=== PATIENT | male | born 1985 | race Caucasian/White ===

== ENCOUNTER 2017-12-09 11:57 | Emergency (ER) | payer MEDICAID ==
[2017-12-09 13:25] LABS: APPEARANCE CLEAR (CLEAR); BILIRUBIN NEGATIVE (NEGATIVE); COLOR YELLOW (YELLOW); GLUCOSE NEGATIVE (NEGATIVE); KETONE NEGATIVE (NEGATIVE); NITRITE NEGATIVE (NEGATIVE); PROTEIN NEGATIVE (NEGATIVE); SPECIFIC GRAVITY 1.015 (1.005-1.020); UROBILINOGEN NORMAL (NORMAL)
== END 2017-12-09 14:25 | disposition home or self-care (01) ==
LOC: D.ER 11:57
PROVIDERS: Family Medicine
DX: M54.5 Low back pain (principal)

== ENCOUNTER 2018-02-08 12:55 | Emergency (ER) | payer MEDICAID | END 2018-02-08 14:18 | disposition home or self-care (01) | LOC: D.ER 12:55 | DX: J06.9 Acute upper respiratory infection, unspecified (principal); R11.2 Nausea with vomiting, unspecified; J02.9 Acute pharyngitis, unspecified; F17.200 Nicotine dependence, unspecified, uncomplicated ==

== ENCOUNTER 2018-07-07 17:17 | Emergency (ER) | payer SELFPAY ==
[~2018-07-07] VITALS: Ht 188 cm; Wt 75.9 kg
[2018-07-07 17:20] VITALS: Ht 188 cm; Wt 75.9 kg
[2018-07-07] MEDS ORDERED: EC-NAPROSYN500 MG PO (19:18)
[2018-07-07] MEDS ORDERED: CYCLOBENZAPRINE10 MG PO (19:18)
[2018-07-07 19:37] VITALS: BP 142/93
== END 2018-07-07 19:38 | disposition home or self-care (01) ==
LOC: D.ER 17:17
DX: S22.32XA Fracture of one rib, left side, initial encounter for closed fracture (principal); W18.31XA Fall on same level due to stepping on an object, initial encounter; Y93.89 Activity, other specified; Y92.019 Unspecified place in single-family (private) house as the place of occurrence of the external cause; F17.200 Nicotine dependence, unspecified, uncomplicated

== ENCOUNTER 2021-01-23 09:54 | Inpatient (IN) | payer BC ==
[~2021-01-23] VITALS: Ht 188 cm; Wt 72.6 kg
[~2021-01-23 09:54] MED LIST: CLEOCIN HCL300 MG PO; CYCLOBENZAPRINE10 MG PO; EC-NAPROSYN500 MG PO; HYDROCODON-ACE1 EAC7 PO; NAPROSYN500 MG PO
[2021-01-23 10:18] LABS: BASOPHILS 0.3 % (0-2); EOSINOPHILS 5.3 % (0-7); HEMOGLOBIN 16.6 g/dL (13.5-17.5); IMMATURE GRANULOCYTES 0.5 % (0-5); LYMPHOCYTE ABS# 1.16 10x3/uL (1.32-3.57); LYMPHOCYTES 18.5 % (15-50); MCH 35.9 pg (26.0-34.0); MCHC 36.1 g/dL (31.0-37.0); MCV 99.4 fL (80.0-100.0); MONOCYTES 10.4 % (2-11); NEUTROPHIL ABS# 4.09 10x3/uL (1.78-5.38); PLATELET COUNT 113 10x3/uL (130-400); RBC 4.63 10x6/uL (4.20-6.10); RDW 12.8 % (11.5-14.5); WBC 6.3 10x3/uL (4.8-10.8)
[2021-01-23 10:25] LABS: CALC OSMOLALITY 278 mosm/kg (275-300); CALCIUM 10.1 mg/dL (8.5-10.1); CARBON DIOXIDE 28.8 mmol/L (21.0-32.0); CHLORIDE - SERUM 101 mmol/L (98-107); CREATININE - SERUM 0.7 mg/dL (0.6-1.3); GLUCOSE 109 mg/dL (74-106); POTASSIUM - SERUM 3.6 mmol/L (3.5-5.1); SODIUM 139 mmol/L (136-145); UREA NITROGEN 12 mg/dL (7-18); eGFR NON AFRICAN AMERICAN > 90 mL/min (90-120)
[2021-01-23 10:38] LABS: ALBUMIN 3.7 g/dL (3.4-5.0); ALKALINE PHOSPHATASE 147 U/L (30-120); ALT (SGPT) 130 U/L (10-68); BILIRUBIN - TOTAL 0.57 mg/dL (0.2-1.3); PROTEIN - SERUM 7.9 g/dL (6.4-8.2)
[2021-01-23 11:02] VITALS: BP 131/93
[2021-01-23 11:04] LABS: LIPASE 8650 U/L (73-393)
[2021-01-23 11:06] LABS: BILIRUBIN NEGATIVE (NEGATIVE); KETONE NEGATIVE (NEGATIVE); NITRITE NEGATIVE (NEGATIVE); UROBILINOGEN NORMAL mg/dL (< 2)
[2021-01-23 11:10] LABS: BACTERIA FEW HPF (NONE SEEN); SQUAMOUS EPITHELIAL NONE SEEN HPF (0-4); WHITE CELLS - URINE 0-5 HPF (0-1)
[2021-01-23 12:12] VITALS: BP 137/94
--- NOTE | 2021-01-23 13:58 | NUR ---
PT ARRIVED VIA WHEELCHAIR, AMBULATORY, AWAKE AND ALERT, ANSWERS QUESTIONS APPROP. RR EVEN NON LABORED. PT DENIES ANY NEEDS AT THIS TIME. ORIENTED TO ROOM, CALL LIGHT, SMOKING RULES, PT STATES UNDERSTANDING. CLWR.
[2021-01-23 14:04] VITALS: BP 134/93; BMI 20.5
--- NOTE | 2021-01-23 18:55 | NUR ---
PT LYING IN BED ON LEFT SIDE, APPEARS ASLEEP, BREATHING DEEPLY/EVENLY. NO ACUTE DISTRESS. WILL CONTIUE TO MONITOR
[2021-01-23 21:45] VITALS: BP 130/86
[2021-01-24 01:34] VITALS: BP 126/82
[2021-01-24 05:18] VITALS: BP 128/84
[2021-01-24 06:55] LABS: BASOPHILS 0.2 % (0-2); EOSINOPHILS 0.8 % (0-7); HEMATOCRIT 43.7 % (42.0-54.0); HEMOGLOBIN 15.3 g/dL (13.5-17.5); IMMATURE GRANULOCYTES 0.3 % (0-5); LYMPHOCYTE ABS# 0.66 10x3/uL (1.32-3.57); LYMPHOCYTES 10.3 % (15-50); MCH 35.1 pg (26.0-34.0); MCV 100.2 fL (80.0-100.0); MONOCYTES 11.2 % (2-11); NEUTROPHIL ABS# 4.95 10x3/uL (1.78-5.38); NEUTROPHILS 77.2 % (40-80); PLATELET COUNT 113 10x3/uL (130-400); RBC 4.36 10x6/uL (4.20-6.10); RDW 12.9 % (11.5-14.5); WBC 6.4 10x3/uL (4.8-10.8)
[2021-01-24 07:23] LABS: ALBUMIN 2.9 g/dL (3.4-5.0); ALKALINE PHOSPHATASE 114 U/L (30-120); BILIRUBIN - TOTAL 0.67 mg/dL (0.2-1.3); CALC OSMOLALITY 271 mosm/kg (275-300); CALCIUM 8.2 mg/dL (8.5-10.1); CARBON DIOXIDE 26.1 mmol/L (21.0-32.0); CHLORIDE - SERUM 100 mmol/L (98-107); CREATININE - SERUM 0.6 mg/dL (0.6-1.3); GLUCOSE 93 mg/dL (74-106); POTASSIUM - SERUM 3.2 mmol/L (3.5-5.1); PROTEIN - SERUM 6.9 g/dL (6.4-8.2); SODIUM 136 mmol/L (136-145); T4 THYROXIN - FREE 0.82 ng/dL (0.76-1.46); THYROID STIMULATING HORMONE 4.12 uIU/mL (0.36-3.74); UREA NITROGEN 13 mg/dL (7-18); eGFR NON AFRICAN AMERICAN > 90 mL/min (90-120)
[2021-01-24 07:25] LABS: ALT (SGPT) 83 U/L (10-68)
[2021-01-24 07:38] LABS: LIPASE 5987 U/L (73-393)
[2021-01-24 08:00] VITALS: BP 149/100
[2021-01-24 11:00] VITALS: BP 129/96
[2021-01-24 12:43] VITALS: Ht 188 cm; Wt 72.6 kg
[2021-01-24 14:37] VITALS: BP 123/86
--- NOTE | 2021-01-24 15:20 | NUR ---
PT ARRIVED BACK FROM WALKING, PT HAD EXITED THE FLOOR. WHEN PT ARRIVED BACK EDUCATION PROVIDED REGARDING NOT LEAVING THE FLOOR. PT STATES UNDERSTANDING. IV RESUMED, NO FURTHER NEEDS VOICED. CLWR.
--- NOTE | 2021-01-24 19:00 | NUR ---
pt sittingup in bed. reports abd/epigastric pain prn norco given, no acute distress. will continue to monitor
[2021-01-24 21:29] VITALS: BP 122/88
[2021-01-25 01:44] VITALS: BP 123/86
[2021-01-25 01:46] VITALS: BP 123/86
[2021-01-25 05:35] VITALS: BP 109/73
[2021-01-25 06:00] LABS: BASOPHILS 0.2 % (0-2); HEMATOCRIT 41.2 % (42.0-54.0); HEMOGLOBIN 14.4 g/dL (13.5-17.5); IMMATURE GRANULOCYTES 0.3 % (0-5); LYMPHOCYTES 14.9 % (15-50); MCH 35.4 pg (26.0-34.0); MCV 101.2 fL (80.0-100.0); MEAN PLATELET VOLUME 10.2 fL (7.4-10.4); MONOCYTES 13.4 % (2-11); NEUTROPHIL ABS# 4.18 10x3/uL (1.78-5.38); NEUTROPHILS 69.2 % (40-80); PLATELET COUNT 97 10x3/uL (130-400); RBC 4.07 10x6/uL (4.20-6.10); RDW 12.6 % (11.5-14.5)
[2021-01-25 06:30] LABS: ALBUMIN 2.5 g/dL (3.4-5.0); ALKALINE PHOSPHATASE 99 U/L (30-120); BILIRUBIN - TOTAL 0.88 mg/dL (0.2-1.3); CALCIUM 7.9 mg/dL (8.5-10.1); CARBON DIOXIDE 26.9 mmol/L (21.0-32.0); CHLORIDE - SERUM 100 mmol/L (98-107); CREATININE - SERUM 0.6 mg/dL (0.6-1.3); POTASSIUM - SERUM 3.5 mmol/L (3.5-5.1); PROTEIN - SERUM 6.4 g/dL (6.4-8.2); SODIUM 135 mmol/L (136-145); UREA NITROGEN 11 mg/dL (7-18); eGFR NON AFRICAN AMERICAN > 90 mL/min (90-120)
[2021-01-25 06:32] LABS: ALT (SGPT) 55 U/L (10-68); CALC OSMOLALITY 266 mosm/kg (275-300)
[2021-01-25 06:33] LABS: GLUCOSE 67 mg/dL (74-106)
[2021-01-25 06:50] LABS: LIPASE 2428 U/L (73-393); PLATELET ESTIMATE DECREASED
[2021-01-25 08:04] VITALS: BP 117/93
--- NOTE | 2021-01-25 09:31 | NUR ---
PATIENT AAOX4, RESP EVEN AND NON LABORED, NO S/S OF DISTRESS, MEDICATIONS ADMINISTERED WITH NO COMPLICATIONS, PATIENT STATES HE IS READY TO GO HOME AND FEELS MUCH BETTER, NO FURTHER NEEDS AT THIS TIME, JURGEN COLIN
--- NOTE | 2021-01-25 13:11 | NUR ---
PATIENT LEFT AMA, PATIENT ADVISED OF HEALTH CARE CONCERNS AND TO PLEASE FOLLOW UP WITH PCP OR COME TO ER IF ANY COMPLICATIONS ARISE.
== END 2021-01-25 13:14 | disposition left against medical advice (07) | DRG 440 ==
LOC: D.ER 09:54 → D.M2 12:42
PROVIDERS: Emergency Medicine; ADMIT Family Medicine; ATTEND Family Medicine
DX: K85.20 Alcohol induced acute pancreatitis without necrosis or infection (principal); F10.20 Alcohol dependence, uncomplicated; E03.9 Hypothyroidism, unspecified; F17.200 Nicotine dependence, unspecified, uncomplicated; Z21 Asymptomatic human immunodeficiency virus [HIV] infection status

== ENCOUNTER 2021-01-27 04:35 | Inpatient (IN) | payer BC ==
[~2021-01-27] VITALS: Ht 188 cm; Wt 67.1 kg
[2021-01-27 04:38] VITALS: BP 134/88
--- NOTE | 2021-01-27 04:55 | NUR ---
TEARFUL SAYING THIS IS THE WORST STOMACH PAIN I HAVE HAD. DENIES N/V/D
[2021-01-27 05:19] LABS: BASOPHILS 0.2 % (0-2); EOSINOPHILS 5.2 % (0-7); HEMATOCRIT 36.7 % (42.0-54.0); HEMOGLOBIN 13.1 g/dL (13.5-17.5); IMMATURE GRANULOCYTES 0.2 % (0-5); LYMPHOCYTE ABS# 0.78 10x3/uL (1.32-3.57); LYMPHOCYTES 19.3 % (15-50); MCH 35.3 pg (26.0-34.0); MCHC 35.7 g/dL (31.0-37.0); MCV 98.9 fL (80.0-100.0); MEAN PLATELET VOLUME 9.3 fL (7.4-10.4); MONOCYTES 18.3 % (2-11); NEUTROPHIL ABS# 2.29 10x3/uL (1.78-5.38); NEUTROPHILS 56.8 % (40-80); PLATELET COUNT 139 10x3/uL (130-400); RBC 3.71 10x6/uL (4.20-6.10); RDW 12.4 % (11.5-14.5)
[2021-01-27 05:32] LABS: CALC OSMOLALITY 277 mosm/kg (275-300); CALCIUM 7.7 mg/dL (8.5-10.1); CARBON DIOXIDE 24.8 mmol/L (21.0-32.0); CHLORIDE - SERUM 105 mmol/L (98-107); CREATININE - SERUM 0.6 mg/dL (0.6-1.3); GLUCOSE 82 mg/dL (74-106); SODIUM 141 mmol/L (136-145); UREA NITROGEN 7 mg/dL (7-18); eGFR NON AFRICAN AMERICAN > 90 mL/min (90-120)
[2021-01-27 05:46] LABS: ALBUMIN 2.7 g/dL (3.4-5.0); ALKALINE PHOSPHATASE 120 U/L (30-120); ALT (SGPT) 74 U/L (10-68); BILIRUBIN - TOTAL 0.39 mg/dL (0.2-1.3); PROTEIN - SERUM 6.1 g/dL (6.4-8.2)
[2021-01-27 05:49] LABS: LIPASE 2922 U/L (73-393)
--- NOTE | 2021-01-27 05:49 | NUR ---
TO ORDERED IMAGING AT THIS TIME VIA STRETCHER
[2021-01-27 07:55] VITALS: BP 116/79
--- NOTE | 2021-01-27 09:08 | NUR ---
ADMITTED TO ROOM FROM ER, IV INFUSING PER DR RANJANA HERE TO SEE PT
[2021-01-27 09:11] VITALS: BMI 20.5
[2021-01-27 13:51] LABS: BILIRUBIN NEGATIVE (NEGATIVE); KETONE SMALL mg/dL (NEGATIVE); NITRITE NEGATIVE (NEGATIVE); UROBILINOGEN NORMAL mg/dL (< 2)
[2021-01-27 13:52] LABS: BACTERIA RARE HPF (NONE SEEN); UDS - AMPHET NEGATIVE QUAL (NEGATIVE); UDS - BARB NEGATIVE QUAL (NEGATIVE); UDS - BENZO NEGATIVE QUAL (NEGATIVE); UDS - COCAINE NEGATIVE QUAL (NEGATIVE); UDS - OPIATE POSITIVE QUAL (NEGATIVE); UDS - PCP NEGATIVE QUAL (NEGATIVE); UDS - THC POSITIVE QUAL (NEGATIVE); WHITE CELLS - URINE 0-5 HPF (0-1)
[2021-01-27 16:49] VITALS: BP 125/78
--- NOTE | 2021-01-27 23:23 | NUR ---
WACHING TV QUIETLY WITH NO DISTRESS NOTED. RESP UNALBORED.IV TO LAC INTACT WIHTOUT REDNESS OR EDEMA NOTED. CL IN REAC
--- NOTE | 2021-01-28 00:13 | NUR ---
I have reviewed this patient and I concur with the Shift Assessment completed by the Licensed Practical Nurse today this shift.
[2021-01-28 00:40] VITALS: BP 129/93
[2021-01-28 07:55] LABS: BASOPHILS 0.3 % (0-2); EOSINOPHILS 4.5 % (0-7); HEMATOCRIT 37.7 % (42.0-54.0); HEMOGLOBIN 13.3 g/dL (13.5-17.5); IMMATURE GRANULOCYTES 0.3 % (0-5); LYMPHOCYTES 24.2 % (15-50); MCH 34.9 pg (26.0-34.0); MCHC 35.3 g/dL (31.0-37.0); MEAN PLATELET VOLUME 9.6 fL (7.4-10.4); MONOCYTES 18.2 % (2-11); NEUTROPHIL ABS# 1.73 10x3/uL (1.78-5.38); NEUTROPHILS 52.5 % (40-80); PLATELET COUNT 164 10x3/uL (130-400); RBC 3.81 10x6/uL (4.20-6.10); RDW 12.5 % (11.5-14.5); WBC 3.3 10x3/uL (4.8-10.8)
[2021-01-28 08:14] VITALS: BP 134/81
[2021-01-28 08:40] LABS: ALBUMIN 2.7 g/dL (3.4-5.0); ALKALINE PHOSPHATASE 118 U/L (30-120); ALT (SGPT) 73 U/L (10-68); BILIRUBIN - TOTAL 0.59 mg/dL (0.2-1.3); CALC OSMOLALITY 274 mosm/kg (275-300); CALCIUM 8.1 mg/dL (8.5-10.1); CARBON DIOXIDE 27.2 mmol/L (21.0-32.0); CHLORIDE - SERUM 103 mmol/L (98-107); CREATININE - SERUM 0.6 mg/dL (0.6-1.3); MAGNESIUM - SERUM 1.9 mg/dL (1.8-2.4); PHOSPHOROUS 2.7 mg/dL (2.5-4.9); POTASSIUM - SERUM 3.2 mmol/L (3.5-5.1); PROTEIN - SERUM 6.1 g/dL (6.4-8.2); SODIUM 140 mmol/L (136-145); UREA NITROGEN 8 mg/dL (7-18); eGFR NON AFRICAN AMERICAN > 90 mL/min (90-120)
[2021-01-28 08:45] LABS: LIPASE 2924 U/L (73-393)
[2021-01-28 08:47] LABS: GLUCOSE 70 mg/dL (74-106)
--- NOTE | 2021-01-28 09:56 | NUR ---
RESTING IN BED, NO DISTRESS NOTED, IV INFUSING PER LAC, NPO, CONT TO MONITOR LABS
[2021-01-28 13:42] VITALS: BP 139/93
[2021-01-28 16:35] VITALS: BP 150/97
[2021-01-29 06:53] LABS: BASOPHILS 0.3 % (0-2); EOSINOPHILS 3.1 % (0-7); HEMATOCRIT 36.9 % (42.0-54.0); HEMOGLOBIN 12.9 g/dL (13.5-17.5); IMMATURE GRANULOCYTES 0.3 % (0-5); LYMPHOCYTE ABS# 0.77 10x3/uL (1.32-3.57); LYMPHOCYTES 24.1 % (15-50); MCH 34.8 pg (26.0-34.0); MCV 99.5 fL (80.0-100.0); MEAN PLATELET VOLUME 9.7 fL (7.4-10.4); MONOCYTES 14.7 % (2-11); NEUTROPHIL ABS# 1.84 10x3/uL (1.78-5.38); NEUTROPHILS 57.5 % (40-80); PLATELET COUNT 195 10x3/uL (130-400); RBC 3.71 10x6/uL (4.20-6.10); RDW 12.5 % (11.5-14.5); WBC 3.2 10x3/uL (4.8-10.8)
[2021-01-29 07:01] LABS: ALBUMIN 2.6 g/dL (3.4-5.0); ALKALINE PHOSPHATASE 124 U/L (30-120); BILIRUBIN - TOTAL 0.65 mg/dL (0.2-1.3); CALCIUM 8.3 mg/dL (8.5-10.1); CARBON DIOXIDE 28.8 mmol/L (21.0-32.0); CHLORIDE - SERUM 104 mmol/L (98-107); GLUCOSE 88 mg/dL (74-106); MAGNESIUM - SERUM 1.8 mg/dL (1.8-2.4); PHOSPHOROUS 3.2 mg/dL (2.5-4.9); POTASSIUM - SERUM 3.3 mmol/L (3.5-5.1); PROTEIN - SERUM 6.5 g/dL (6.4-8.2); SODIUM 140 mmol/L (136-145)
[2021-01-29 07:41] LABS: ALT (SGPT) 96 U/L (10-68); CALC OSMOLALITY 275 mosm/kg (275-300); CREATININE - SERUM 0.6 mg/dL (0.6-1.3); LIPASE 3992 U/L (73-393); UREA NITROGEN 6 mg/dL (7-18); eGFR NON AFRICAN AMERICAN > 90 mL/min (90-120)
--- NOTE | 2021-01-29 08:08 | NUR ---
PT LAYING IN BED RESTING, AOX4, NO SIGNS OF DISTRESS, NO NEEDS AT THIS TIME
--- NOTE | 2021-01-29 09:10 | NUR ---
DATA PROCESSING SYSTEMS PROJECT PLANNER AND CONCRETE PUMP OPERATOR HELPER NOTIFIED OF PT NEED TO BE ON TELE PER DR TINAJERO
[2021-01-29 10:02] VITALS: BP 124/85
[2021-01-29 10:37] VITALS: Ht 188 cm; Wt 67.1 kg
[2021-01-29 14:07] VITALS: BP 127/80
[2021-01-29 18:59] VITALS: BP 126/95
[2021-01-29 20:00] VITALS: BP 129/95
[2021-01-30] VITALS: BP 136/90
--- NOTE | 2021-01-30 02:16 | NUR ---
I have reviewed this patient and I concur with the Shift Assessment completed by the Licensed Practical Nurse today this shift.
[2021-01-30 04:00] VITALS: BP 122/83
[2021-01-30 06:38] LABS: BASOPHILS 0.4 % (0-2); EOSINOPHILS 3.3 % (0-7); HEMATOCRIT 34.5 % (42.0-54.0); HEMOGLOBIN 12.1 g/dL (13.5-17.5); IMMATURE GRANULOCYTES 0.4 % (0-5); LYMPHOCYTE ABS# 0.59 10x3/uL (1.32-3.57); LYMPHOCYTES 24.3 % (15-50); MCH 34.7 pg (26.0-34.0); MCHC 35.1 g/dL (31.0-37.0); MCV 98.9 fL (80.0-100.0); MEAN PLATELET VOLUME 9.6 fL (7.4-10.4); MONOCYTES 17.7 % (2-11); NEUTROPHIL ABS# 1.31 10x3/uL (1.78-5.38); NEUTROPHILS 53.9 % (40-80); PLATELET COUNT 189 10x3/uL (130-400); RBC 3.49 10x6/uL (4.20-6.10); RDW 12.5 % (11.5-14.5); WBC 2.4 10x3/uL (4.8-10.8)
[2021-01-30 06:47] LABS: INR 1.13 (0.85-1.17); PROTIME 13.4 SECONDS (11.6-15.0)
[2021-01-30 06:54] LABS: ALBUMIN 2.4 g/dL (3.4-5.0); ALKALINE PHOSPHATASE 112 U/L (30-120); ALT (SGPT) 89 U/L (10-68); BILIRUBIN - TOTAL 0.42 mg/dL (0.2-1.3); CALCIUM 8.1 mg/dL (8.5-10.1); CARBON DIOXIDE 28.9 mmol/L (21.0-32.0); CHLORIDE - SERUM 106 mmol/L (98-107); CREATININE - SERUM 0.6 mg/dL (0.6-1.3); GLUCOSE 110 mg/dL (74-106); PHOSPHOROUS 3.1 mg/dL (2.5-4.9); POTASSIUM - SERUM 3.1 mmol/L (3.5-5.1); SODIUM 139 mmol/L (136-145); eGFR NON AFRICAN AMERICAN > 90 mL/min (90-120)
[2021-01-30 07:20] LABS: CALC OSMOLALITY 275 mosm/kg (275-300); LIPASE 4007 U/L (73-393); MAGNESIUM - SERUM 2.3 mg/dL (1.8-2.4); UREA NITROGEN 3 mg/dL (7-18)
--- NOTE | 2021-01-30 07:30 | NUR ---
REC'D IN BED DURING WALKING ROUNDS AWAKE AND ALERT. RESP EVEN AND UNLABOREDW WITH NO DISTRESS NOTED. CAN EXPRESS NEEDS AND WANTS.NO C/O NOTED OR VOICED AT THIS TIME. ASSESSMENT COMPLETED. C/L IN REACH AT BEDSIDE.
[2021-01-30 08:50] VITALS: BP 123/82
--- NOTE | 2021-01-30 11:27 | NUR ---
WAS MEDICATED WITH DILAUDID 1 MG AT THIS TIME FOR C/O PAIN RATING 10/10. C/L IN REACH AT BEDSIDE.
[2021-01-30 14:48] VITALS: BP 137/79
--- NOTE | 2021-01-30 15:31 | NUR ---
WAS MEDICATED WITH DILAUDID 1 MG AT THIS TIME FOR C/O PAIN. C/L IN REACH AT BEDSIDE.
[2021-01-30 17:51] VITALS: BP 126/92
[2021-01-30 20:00] VITALS: BP 140/94
[2021-01-31] VITALS: BP 116/81
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
[2021-01-31 07:20] LABS: INR 1.15 (0.85-1.17); PROTIME 13.6 SECONDS (11.6-15.0)
[2021-01-31 07:22] LABS: BASOPHILS 0.4 % (0-2); EOSINOPHILS 5.7 % (0-7); HEMATOCRIT 34.1 % (42.0-54.0); HEMOGLOBIN 11.8 g/dL (13.5-17.5); LYMPHOCYTE ABS# 0.82 10x3/uL (1.32-3.57); LYMPHOCYTES 29.2 % (15-50); MCH 34.5 pg (26.0-34.0); MCHC 34.6 g/dL (31.0-37.0); MCV 99.7 fL (80.0-100.0); MONOCYTES 14.2 % (2-11); NEUTROPHIL ABS# 1.42 10x3/uL (1.78-5.38); NEUTROPHILS 50.5 % (40-80); PLATELET COUNT 210 10x3/uL (130-400); RBC 3.42 10x6/uL (4.20-6.10); RDW 12.6 % (11.5-14.5); WBC 2.8 10x3/uL (4.8-10.8)
--- NOTE | 2021-01-31 07:22 | NUR ---
RECIEVED BEDSIDE REPORT. BED LOW POSITION, CALL LIGHT IN REACH. FREE FROM SIGNS OF DISTRESS. IN BED SLEEPING. AROUSES TO VOICE. DENIES NEEDS A THIS TIME. WILL CONTINUE TO MONITOR.
[2021-01-31 07:30] LABS: ALBUMIN 2.4 g/dL (3.4-5.0); ALKALINE PHOSPHATASE 110 U/L (30-120); ALT (SGPT) 88 U/L (10-68); CALC OSMOLALITY 278 mosm/kg (275-300); CALCIUM 7.9 mg/dL (8.5-10.1); CARBON DIOXIDE 26.2 mmol/L (21.0-32.0); CHLORIDE - SERUM 108 mmol/L (98-107); CREATININE - SERUM 0.5 mg/dL (0.6-1.3); GLUCOSE 77 mg/dL (74-106); MAGNESIUM - SERUM 2.3 mg/dL (1.8-2.4); PHOSPHOROUS 3.5 mg/dL (2.5-4.9); POTASSIUM - SERUM 3.6 mmol/L (3.5-5.1); PROTEIN - SERUM 5.8 g/dL (6.4-8.2); SODIUM 142 mmol/L (136-145); eGFR NON AFRICAN AMERICAN > 90 mL/min (90-120)
[2021-01-31 08:01] LABS: LIPASE 3375 U/L (73-393); UREA NITROGEN 4 mg/dL (7-18)
[2021-01-31 10:11] VITALS: BP 121/84
--- NOTE | 2021-01-31 12:24 | MORECARE ---
CASE MANAGEMENT DISCHARGE SUMMARY PATIENT: ZECHARIAH BOWDEN UNIT: [id number] ADM DATE: 01/27/21 AGE: 35 : 83 SEX: M ROOM/BED: D.2208 AUTHOR: ALICE HATHAWAY PHYSICIAN: REFERRING PHYSICIAN: CRISSY STYLES MD DATE OF SERVICE: 01/31/21 Case Management Discharge Planning Summary DCP REVIEW SUMMARY ANTICIPATED D/C DATE: EXPECTED LOS : CASE STATUS: DCP Initiated INITIAL REVIEW: 01/27/2021 INITIAL REVIEWER: Nimo Barrios FINAL DISCHARGE DISPOSITION: 01 : Home or Self Care (Routine Discharge) FINAL REVIEWER: FINAL REVIEW DATE: DCP Focus Questions & Answers QUESTION: ANSWER : PATIENT: ZECHARIAH BOWDEN ENCOUNTER: [id number] MEDICAL RECORD#: [id number] ADMISSION DATE: 01/27/2021 DISCHARGE DATE: ATTENDING MD: STEPHANI STYLES : AGE: 35 MARITAL STATUS: S DC PLAN ID: [id number] FACILITY: [facility] PRINTED ON: 01/31/21 12:24 CT All edits/amendments must be made on the electronic document DICTATION DATE: 01/31/21 122 OTHER SALES SUPPORT WORKER: DM 01/31/21 1224 RPT#: [id number] DC DATE: STATUS: ADM IN [facility] [address] [place] [address] END OF REPORT
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
[2021-01-31 14:48] VITALS: BP 123/89
[2021-01-31 17:11] VITALS: BP 132/88
--- NOTE | 2021-01-31 19:32 | NUR ---
RECEIVED BEDSIDE REPORT. PIV TO RIGHT AC, PATENT AND INFUSING, NO REDNESS OR SWELLING. TELEMERTY IN PLACE, 79 SR. PT ABLE TO AMBULATE AD [place]. EDUCATED PT ON CL AND NEEDS, VERBALIZED UNDERSTANDING. BED LOW, CL IN REACH.
[2021-01-31 20:00] VITALS: BP 117/80
[2021-02-01] VITALS: BP 128/88
[2021-02-01 06:37] LABS: HEMATOCRIT 33.9 % (42.0-54.0); HEMOGLOBIN 11.8 g/dL (13.5-17.5); LYMPHOCYTE ABS# 0.67 10x3/uL (1.32-3.57); MCH 34.9 pg (26.0-34.0); MCHC 34.8 g/dL (31.0-37.0); MCV 100.3 fL (80.0-100.0); MEAN PLATELET VOLUME 9.9 fL (7.4-10.4); NEUTROPHIL ABS# 1.26 10x3/uL (1.78-5.38); PLATELET COUNT 209 10x3/uL (130-400); RBC 3.38 10x6/uL (4.20-6.10); RDW 12.6 % (11.5-14.5); WBC 2.5 10x3/uL (4.8-10.8)
[2021-02-01 06:58] LABS: INR 1.13 (0.85-1.17); PROTIME 13.4 SECONDS (11.6-15.0)
[2021-02-01 07:08] LABS: ALBUMIN 2.6 g/dL (3.4-5.0); ALKALINE PHOSPHATASE 111 U/L (30-120); ALT (SGPT) 79 U/L (10-68); BILIRUBIN - TOTAL 0.49 mg/dL (0.2-1.3); CALC OSMOLALITY 273 mosm/kg (275-300); CALCIUM 8.7 mg/dL (8.5-10.1); CARBON DIOXIDE 25.2 mmol/L (21.0-32.0); CHLORIDE - SERUM 107 mmol/L (98-107); CHOL - HDL RATIO 5.5 ratio (2.3-4.9); CHOLESTEROL, TOTAL 133 mg/dL (0-200); GLUCOSE 78 mg/dL (74-106); HDL CHOLESTEROL 24 mg/dL (32-96); LDL CHOLESTEROL 94 mg/dL (0-100); LDL-HDL RATIO 3.9 ratio (1.5-3.5); MAGNESIUM - SERUM 2.3 mg/dL (1.8-2.4); PHOSPHOROUS 4.3 mg/dL (2.5-4.9); POTASSIUM - SERUM 3.9 mmol/L (3.5-5.1); PROTEIN - SERUM 6.2 g/dL (6.4-8.2); SODIUM 139 mmol/L (136-145); TRIGLYCERIDE 78 mg/dL (30-200); UREA NITROGEN 4 mg/dL (7-18)
[2021-02-01 07:29] LABS: CREATININE - SERUM 0.7 mg/dL (0.6-1.3); LIPASE 2626 U/L (73-393); eGFR NON AFRICAN AMERICAN > 90 mL/min (90-120)
--- NOTE | 2021-02-01 07:31 | NUR ---
RECIEVED BEDSIDE REPORT. BED LOW POSITION, CALL LIGHT IN REACH. FAMILY AT BEDSIDE. DENIES NEEDS AT THIS TIME. FREE FROM SIGNS OF DISTRESS. WILL CONTINUE TO MONITOR.
[2021-02-01 09:34] VITALS: BP 134/73
[2021-02-01] MEDS ORDERED: FOLIC ACID1 MG PO (11:55)
[2021-02-01] MEDS ORDERED: VITAMIN B-1100 M1 PO (11:55)
[2021-02-01] MEDS ORDERED: MULTI-DAY VITAM1 TAB PO (11:55)
[2021-02-01] MEDS ORDERED: ATIVAN1 MG PO ×2 (11:56→11:57)
[2021-02-01] MEDS ORDERED: MORPHINE SULFAT15 M4 PO (12:01)
[2021-02-01 12:12] LABS: HEPATITIS C ANTIBODY <0.1 S/CO RAT (0.0-0.9)
[2021-02-01 13:53] LABS: EOSINOPHILS 1 % (0-7); LYMPHOCYTES 28 % (15-50); MONOCYTES 12 % (2-11); NEUTROPHILS 54 % (40-80)
[2021-02-01 13:54] LABS: PLATELET ESTIMATE NORMAL
--- NOTE | 2021-02-01 14:32 | NUR ---
DISCHARGE PAPERS COMPLETE. NO FURTHER QUESTIONS. IV CATH REMOVED, CATH TIP INTACT. BELONGINGS GATHERED. REFUSED WHEELCHAIR, AMBULATED WITH NURSE TO FRONT DOOR TO DISCHARGE HOME WITH FAMILY.
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
== END 2021-02-01 14:34 | disposition home or self-care (01) | DRG 440 ==
LOC: D.ER 04:35 → D.MS 06:45
PROVIDERS: Family Medicine; Student in an Organized Health Care Education/Training Program; ADMIT Family Medicine; ATTEND Family Medicine
DX: K85.90 Acute pancreatitis without necrosis or infection, unspecified (principal); F10.20 Alcohol dependence, uncomplicated; Y90.1 Blood alcohol level of 20-39 mg/100 ml; Z21 Asymptomatic human immunodeficiency virus [HIV] infection status; E87.6 Hypokalemia; E03.9 Hypothyroidism, unspecified

== ENCOUNTER 2021-03-04 16:26 | Emergency (ER) | payer BC ==
[~2021-03-04] VITALS: Ht 188 cm; Wt 68.2 kg
[~2021-03-04 16:26] MED LIST changes: +ATIVAN1 MG PO; +FOLIC ACID1 MG PO; +MORPHINE SULFAT15 M4 PO; +MULTI-DAY VITAM1 TAB PO; +VITAMIN B-1100 M1 PO
[2021-03-04 16:35] VITALS: Ht 188 cm; Wt 68.2 kg
[2021-03-04 17:33] LABS: BASOPHILS 0.8 % (0-2); HEMATOCRIT 42.7 % (42.0-54.0); LYMPHOCYTES 31.6 % (15-50); MCH 35.2 pg (26.0-34.0); MCHC 35.2 g/dL (31.0-37.0); MEAN PLATELET VOLUME 6.8 fL (7.4-10.4); MONOCYTES 10.7 % (2-11); NEUTROPHILS 52.9 % (40-80); RBC 4.28 10x6/uL (4.20-6.10); RDW 13.4 % (11.5-14.5); WBC 4.3 10x3/uL (4.8-10.8)
[2021-03-04 17:34] LABS: PLATELET COUNT 130 10x3/uL (130-400)
[2021-03-04 18:00] LABS: ALKALINE PHOSPHATASE 117 U/L (30-120); ALT (SGPT) 109 U/L (10-68); BILIRUBIN - TOTAL 0.45 mg/dL (0.2-1.3); CALC OSMOLALITY 285 mosm/kg (275-300); CHLORIDE - SERUM 107 mmol/L (98-107); CREATININE - SERUM 0.7 mg/dL (0.6-1.3); GLUCOSE 87 mg/dL (74-106); POTASSIUM - SERUM 3.1 mmol/L (3.5-5.1); PROTEIN - SERUM 7.7 g/dL (6.4-8.2); SODIUM 145 mmol/L (136-145); UREA NITROGEN 7 mg/dL (7-18); eGFR NON AFRICAN AMERICAN > 90 mL/min (90-120)
[2021-03-04 18:10] LABS: ALBUMIN 3.8 g/dL (3.4-5.0); CARBON DIOXIDE 30.6 mmol/L (21.0-32.0)
[2021-03-04] MEDS ORDERED: CYCLOBENZAPRINE10 MG PO (19:14)
[2021-03-04] MEDS ORDERED: IBUPROFEN800 MG PO (19:14)
[2021-03-04] MEDS ORDERED: ACETAMINOPHEN500 M1 PO (19:14)
[2021-03-04 19:34] VITALS: BP 128/90
== END 2021-03-04 19:34 | disposition home or self-care (01) ==
LOC: D.ER 16:26
PROVIDERS: Family Medicine
DX: S01.81XA Laceration without foreign body of other part of head, initial encounter (principal); S00.83XA Contusion of other part of head, initial encounter; M79.10 Myalgia, unspecified site; T14.8XXA Other injury of unspecified body region, initial encounter; Y09 Assault by unspecified means